=== PATIENT | female | born 1990 | race Caucasian/White ===

== ENCOUNTER 2016-12-11 08:06 | Emergency (ER) | payer OTHER ==
[~2016-12-11] VITALS: Ht 172.7 cm; Wt 82.5 kg
[2016-12-11] MEDS ORDERED: SPRINTEC 35 MCG1 TAB PO (08:17)
[2016-12-11 11:30] VITALS: BP 150/81
== END 2016-12-11 11:34 | disposition short-term general hospital (02) ==
LOC: ED 08:06
DX: I26.99 Other pulmonary embolism without acute cor pulmonale (principal); Z98.890 Other specified postprocedural states
CPT/HCPCS: J1650; J7120

== ENCOUNTER → 2017-06-25 | Outpatient (CLI) | payer OTHER ==
[~2017-06-25] MED LIST: SPRINTEC 35 MCG1 TAB PO
[2017-06-25 09:27] LABS: EOS # 0.2 (0.04-0.40); EOS % 3.8 % (1.0-5.0); HEMATOCRIT 38.4 % (37.0-47.0); HEMOGLOBIN 12.3 g/dL (12.5-16.0); LYMPH# 2.1 (1.50-4.00); MEAN CELL VOLUME 97 fl (78-100); MEAN CORPUSCULAR HEMOGLOBIN 31 pg (27-31); MEAN CORPUSCULAR HGB CONC 32 g/dL (33-37); MEAN PLATELET VOLUME 11.3 fl (7.4-10.4); MONO # 0.6 (0.20-0.80); NEU # 2.9 (1.40-6.50); PLATELET COUNT 192 K/mm3 (130-400); RED BLOOD COUNT 3.98 M/mm3 (4.10-5.30); RED CELL DISTRIBUTION WIDTH 12.4 % (11.5-14.5); WHITE BLOOD COUNT 5.8 K/mm3 (4.8-10.8)
[2017-06-26 10:08] LABS: FACTOR V LEIDEN MUTATION B Negative (Negative)
[2017-06-27 12:28] LABS: LUPUS ANTICOAGULANT INR 1.1 (()); LUPUS ANTICOAGULANT PT 11.7 sec (()); LUPUS ANTICOAGULANT PTT 36 sec (26 - 36)
[2017-06-27 12:29] LABS: LUPUS ANTICOAGULANT DRVVT 1.7 ratio (())
[2017-06-28 08:31] LABS: BETA-2GPI IGG AABS AMS; BETA-2GPI IGM AABS AMS
[2017-06-28 11:02] LABS: ANTI-THROMBIN III 93 % (72-128)
[2017-06-28 11:09] LABS: PROTEIN S ACTIVITY 109 % (50-149)
== END ==
LOC: LAB 08:06
PROVIDERS: Internal Medicine
DX: I26.99 Other pulmonary embolism without acute cor pulmonale (principal)

== ENCOUNTER → 2017-06-26 | Outpatient (CLI) | payer OTHER | LOC: RAD 08:50 | DX: I26.99 Other pulmonary embolism without acute cor pulmonale (principal); R91.8 Other nonspecific abnormal finding of lung field | CPT/HCPCS: Q9967 ==